=== PATIENT | female | born 1970 | race African-American/Black ===

== ENCOUNTER 2024-07-25 11:55 | Observation (INO) | payer MEDICARE ==
[~2024-07-25] VITALS: Ht 149.9 cm; Wt 40.8 kg
[2024-07-25 13:51] LABS: BASOPHILS % 0.3 % (0.0-1.0); EOSINOPHILS % 0.3 % (0.0-6.0); LYMPHOCYTES # (AUTO) 1.4 (1.0-3.2); LYMPHOCYTES % 42.8 % (18.0-39.1); MEAN CORPUSCULAR HEMOGLOBIN 29.9 pg (28-32); MEAN CORPUSCULAR HGB CONC 31.8 g/dL (31-35); MEAN CORPUSCULAR VOLUME 93.9 fL (81-99); MONOCYTES # (AUTO) 0.3 (0.2-0.8); MONOCYTES % 9.4 % (4.4-11.3); NEUTROPHILS # (AUTO) 1.4 (2.1-6.9); NEUTROPHILS % 44.7 % (38.7-80.0); PLATELET COUNT 86 x10e3/uL (140-360); RED BLOOD COUNT 2.31 x10e6/uL (3.6-5.1); RED CELL DISTRIBUTION WIDTH 18.4 % (11.7-14.4)
[2024-07-25 13:52] LABS: HEMATOCRIT 21.7 % (34.2-44.1); HEMOGLOBIN 6.9 g/dL (12.0-16.0)
[2024-07-25 13:59] LABS: ALBUMIN/GLOBULIN RATIO 0.3 (0.8-2.0); ANION GAP 12.1 mmol/L (8-16); BILIRUBIN,TOTAL 0.5 mg/dL (0.2-1.2); CALCIUM 8.4 mg/dL (8.4-10.2); CREATININE, SERUM 1.17 mg/dL (0.57-1.11); POTASSIUM 4.1 mmol/L (3.5-5.1); TOTAL PROTEIN 12.9 g/dL (6.5-8.1)
[2024-07-25] MEDS ORDERED: IOPAMIDOL 370 MG/ML 100 ML INFUS..BTL INJ ONE (14:07)
[2024-07-25 14:24] LABS: INR 1.05; PARTIAL THROMBOPLASTIN TIME 28.7 seconds (23.8-35.5); PROTHROMBIN TIME 14.3 seconds (11.9-14.5)
[2024-07-25] MEDS: SODIUM CHLORIDE 0.9% 1000ML 1,000 ML IV STA (14:37)
[2024-07-25] MEDS: ONDANSETRON HCL INJ 2MG/ML 2ML 2 MG/ML VIAL IV STA (14:37)
[2024-07-25] MEDS ORDERED: ONDANSETRON HCL INJ 2MG/ML 2ML 2 MG/ML VIAL IV PRN (16:00)
[2024-07-25] MEDS: SODIUM CHLORIDE 0.9% 1000ML 1,000 ML IV SCH (17:33)
[2024-07-25] MEDS: Morphine 4mg INJECTION 4 MG/ML INJ IV PRN (17:33)
[2024-07-25] MEDS ORDERED: SODIUM CHLORIDE 0.9% 250ML 250 ML ONE (18:59)
[2024-07-25 20:00] VITALS: PULSE 67; RESP 15; TEMP 98.6
[2024-07-25 21:01] VITALS: BP 110/72; PULSE 68; RESP 18; TEMP 98.5; O2SAT 100
[2024-07-25 21:44] VITALS: BP 110/72; PULSE 68; RESP 18; TEMP 98.5; O2SAT 100
[2024-07-25 23:45] VITALS: BP 110/72; PULSE 68; RESP 18; TEMP 98.5; O2SAT 100
[2024-07-26] VITALS: BP 115/74; PULSE 64; RESP 17; TEMP 98; O2SAT 95
[2024-07-26 04:00] VITALS: BP 103/65; PULSE 64; RESP 17; TEMP 98.4; O2SAT 96
[2024-07-26 07:24] LABS: BASOPHILS % 0.2 % (0.0-1.0); EOSINOPHILS % 0.2 % (0.0-6.0); HEMATOCRIT 26.5 % (34.2-44.1); HEMOGLOBIN 8.6 g/dL (12.0-16.0); LYMPHOCYTES # (AUTO) 2.1 (1.0-3.2); LYMPHOCYTES % 50.6 % (18.0-39.1); MEAN CORPUSCULAR HEMOGLOBIN 29.6 pg (28-32); MEAN CORPUSCULAR HGB CONC 32.5 g/dL (31-35); MEAN CORPUSCULAR VOLUME 91.1 fL (81-99); MONOCYTES # (AUTO) 0.5 (0.2-0.8); MONOCYTES % 11.4 % (4.4-11.3); NEUTROPHILS # (AUTO) 1.5 (2.1-6.9); NEUTROPHILS % 36.4 % (38.7-80.0); PLATELET COUNT 83 x10e3/uL (140-360); RED BLOOD COUNT 2.91 x10e6/uL (3.6-5.1); RED CELL DISTRIBUTION WIDTH 17.9 % (11.7-14.4); WHITE BLOOD COUNT 4.11 x10e3/uL (4.8-10.8)
[2024-07-26 07:30] LABS: ALBUMIN 2.5 g/dL (3.5-5.0); ALBUMIN/GLOBULIN RATIO 0.3 (0.8-2.0); ANION GAP 9.8 mmol/L (8-16); BILIRUBIN,TOTAL 0.4 mg/dL (0.2-1.2); CALCIUM 7.9 mg/dL (8.4-10.2); POTASSIUM 3.8 mmol/L (3.5-5.1); TOTAL PROTEIN 10.9 g/dL (6.5-8.1)
[2024-07-26 08:15] VITALS: BP 109/73; PULSE 59; RESP 18; TEMP 98.2; O2SAT 98
[2024-07-26 09:53] VITALS: BP 109/73; PULSE 59; RESP 18; TEMP 98.2; O2SAT 98
== END 2024-07-26 10:28 | disposition home or self-care (01) ==
LOC: ER 12:40 → ERHOLD 16:07 → MED/SURG3 20:33
PROVIDERS: ADMIT Internal Medicine; ATTEND Internal Medicine
DX: D64.9 Anemia, unspecified (principal); D61.818 Other pancytopenia; C90.00 Multiple myeloma not having achieved remission
CPT/HCPCS: 36415 ×2; 36430; 70470; 71045; 71260; 74177; 80053 ×2; 82948 ×2; 85025 ×2; 85610; 85730; 86850; 86900; 86920; 93005; 99284; G0378 ×2; J2270; J2405; J2470; J7030 ×2; J7050; P9016; Q9967